=== PATIENT | male | born 1990 | race Caucasian/White ===

== ENCOUNTER 2017-06-27 22:25 | Emergency (ER) | payer MEDICAID, OTHER ==
[~2017-06-27] VITALS: Ht 162.6 cm; Wt 78.0 kg
[~2017-06-27 22:25] MED LIST: ACET500C5 PO; CIPR500T4 PO; PHEN-538 PO; TRAM50TA2 PO
[2017-06-27 22:34] VITALS: Ht 162.6 cm; Wt 78.0 kg
--- NOTE | 2017-06-27 23:27 | RADRPT ---
PROCEDURE: XR left Ankle. CLINICAL INDICATION: Trauma TECHNIQUE: AP, oblique and lateral views of the left ankle were performed. COMPARISON: None. FINDINGS: Nondisplaced comminuted fractures of the calcaneal body with the surrounding soft tissue swelling. The bones are normal mineralization without cortical destruction. The talar dome is intact and ankle joint mortise well maintained. The remaining bones of the foot an d ankle are unremarkable. No other soft tissue or osseous abnormality. IMPRESSION: 1. Nondisplaced comminuted fractures of the calcaneal body with surrounding soft tissue swelling. No other fracture or dislocation. RPTAT:AAJJ Physician Tori Date Time Electronically viewed and signed by Physician Tori on 06/27/2017 23:27 SOCO/
[2017-06-28] MEDS ORDERED: LIDOCAINE/MYLANTA 40 ML BTL PO STA (00:13)
[2017-06-28] MEDS ORDERED: HYDR-902 PO (00:16)
[2017-06-28] MEDS ORDERED: IBUP800T25 PO (00:16)
[2017-06-28] MEDS ORDERED: AMOX1TAB10 PO (00:18)
--- NOTE | 2017-06-28 00:23 | ERD ---
ER Documentation Chief Complaint Chief Complaint ok to book, canine bites from police pursuit, L knee/ankle, R knee scrape HPI This 27-year-old male who is here for booking. The patient was evading police and jumping of her multiple fences he was found underneath a car by canine. The dog bit the patient in the right knee There are some puncture wounds there. Patient is complaining of pain in his left foot typically the heel when he landed jumping over a fence onto some concrete. Denies any low back pain denies any numbness weakness has headache neck pain chest pain back pain. There is no pain in the right knee. The pain in the left foot is constant and worse with ambulating better with rest ROS All systems reviewed and are negative except as per history of present illness. Medications Home Meds Active Scripts Amoxicillin/Potassium Clav (Amox-Clav 875-125 mg Tablet) 875-125 mg Tab, 1 TAB PO BID for 7 Days, #14 TAB Prov:BERTRAM ALBERTSSTKAYLENES Shagufta. DO 06/28/17 Ibuprofen* (Motrin*) 800 Mg Tab, 800 MG PO Q6H Y for PAIN AND OR ELEVATED TEMP, #30 TAB Prov:LEYURIOSBERTRAMSTOLOS A. DO 06/28/17 Hydrocodone/Acetaminophen ([employer] 10-325 Tablet) 1 Each Tablet, 1 TAB PO Q6H Y for PAIN, #20 TAB Prov:LEYURIOSAPOSTOLOS A. DO 06/28/17 Allergies Allergies: Coded Allergies: No Known Allergy (Unverified , 06/27/17) PMhx/Soc History of Surgery: No Anesthesia Reaction: No Hx Neurological Disorder: No Hx Respiratory Disorders: No Hx Cardiac Disorders: No Hx Psychiatric Problems: No Hx Miscellaneous Medical Probl: Yes (GERD) Hx Alcohol Use: Yes (OCCASIONAL) Hx Substance Use: No Hx Tobacco Use: No Smoking Status: Never smoker FmHx Family History: No coronary disease Physical Exam Vitals Vital Signs Date Time Temp Pulse Resp B/P Pulse Ox O2 Delivery O2 Flow Rate FiO2 06/27/17 22:34 98.1 90 18 147/75 98 Physical Exam Const: Well-developed, well-nourished Head: Atraumatic, normocephalic Eyes: Normal Conjunctiva, PERRLA, EOMI, normal sclera, no nystagmus ENT: Normal External Ears, Nose and Mouth, moist mucus membranes. Neck: Full range of motion. No meningismus, no lymphadenopathy. Resp: Clear to auscultation bilaterally, no wheezing, rhonchi, rales Cardio: Regular rate and rhythm, no murmurs, S1 S2 present Abd: Soft, non tender x 4, non distended. Normal bowel sounds, no guarding or rebound, no pulsitile abdominal masses or bruits Skin: No petechiae or rashes, no ecchymosis , no maculopapular rash, there is some puncture wounds 5 to the right surrounding knee there is no active bleeding Back: No midline or flank tenderness Ext: No cyanosis, or edema, FROM x 4, normal inspection, neurovascularly intact x 4, there is tenderness to the left ankle and left heel no deformity Neur: Awake and alert, STR 5/5 x 4, sensation intact x 4, no focal findings, cerebellum intact Psych: Normal Mood and Affect Results 24 hrs Current Medications Medications (Trade) Dose Ordered Sig/Issa Route PRN Reason Start Time Stop Time Status Last Admin Dose Admin Miscellaneous Medication (Gi Cocktail (2)) 40 ml ONCE STAT PO 06/28/17 00:13 06/28/17 00:14 DC Acetaminophen/ Hydrocodone Bitart ([employer] (10/325)) 1 tab ONCE ONCE PO 06/28/17 00:30 06/28/17 00:31 Procedures/MDM PROCEDURE: XR left Ankle. CLINICAL INDICATION: Trauma TECHNIQUE: AP, oblique and lateral views of the left ankle were performed. COMPARISON: None. FINDINGS: Nondisplaced comminuted fractures of the calcaneal body with the surrounding soft tissue swelling. The bones are normal mineralization without cortical destruction. The talar dome is intact and ankle joint mortise well maintained. The remaining bones of the foot and ankle are unremarkable. No other soft tissue or osseous abnormality. IMPRESSION: 1. Nondisplaced comminuted fractures of the calcaneal body with surrounding soft tissue swelling. No other fracture or dislocation. RPTAT:AAJJ Physician Tori Date Time Electronically viewed and signed by Physician Tori on 06/27/2017 23:27 SOCO/ CC: FERMIN ALBERTS DO Patient was given crutches, left posterior splint on the foot. We will refer the patient for outpatient treatment on his foot will likely need surgery and/or ankle boot Departure Diagnosis: Primary Impression: Dog bite of extremity Additional Impression: Left calcaneal fracture Encounter type: initial encounter Calcaneus location: unspecified portion of calcaneus Fracture type: closed Fracture alignment: nondisplaced Qualified Code: S92.002A - Closed nondisplaced fracture of left calcaneus, unspecified portion of calcaneus, initial encounter Condition: Stable Patient Instructions: Fracture, Foot (Child) Referrals: PARVEZ JIANG,IN ANANT FERMIN CARLSON DO Jun 28, 2017 00:23
[2017-06-28] MEDS ORDERED: HYDROCODONE/APAP (10/325) TAB PO ONE (00:30)
== END 2017-06-28 00:54 ==
LOC: E/R 22:25
DX: S92.002A Unspecified fracture of left calcaneus, initial encounter for closed fracture (principal); W54.0XXA Bitten by dog, initial encounter
CPT/HCPCS: 73610

== ENCOUNTER 2018-04-03 14:04 | Emergency (ER) | END 2018-04-03 16:41 | disposition home or self-care (01) ==